=== PATIENT | female | born 1935 | race Caucasian/White ===

== ENCOUNTER 2016-07-08 19:20 | Emergency (ER) | payer MEDICARE, OTHER ==
[~2016-07-08 19:20] MED LIST: ALPRAZOLAM0.5 MG PO; AMLODIPINE BESYL5 MG PO; ARICEPT10 MG PO; ASPIR 8181 MG PO; CEVIMELINE HCL30 MG PO; CIPROFLOXACIN500 MG PO; ELAVIL 50 MG TA50 MG PO; FEOSOL ELI220 MG/5 M PO; FLOVENT DISKUS50 MCG; GABAPENTIN300 MG PO; ISORDIL TAB 3030 MG PO; LEVOTHYROXINE75 MCG PO; OMNICEF 300 MG300 MG PO; PROVENTIL HFA 61 INH INH; TENORMIN 50 MG50 MG PO; VITAMIN B-1000 MCG/M IM
[2016-07-08 20:21] LABS: HEMOGLOBIN 13.7 gm/dl (12.3-15.3); RED BLOOD COUNT 5.18 M/UL (4.00-5.10); WHITE BLOOD COUNT 7.1 K/UL (4.5-11.0)
[2016-07-08 20:39] LABS: BUN/CREATININE RATIO 15 (0-10)
== END 2016-07-09 17:10 | disposition home or self-care (01) ==
LOC: ER1 19:20
PROVIDERS: Family Medicine
DX: J44.9 Chronic obstructive pulmonary disease, unspecified (principal); F43.9 Reaction to severe stress, unspecified; Z88.5 Allergy status to narcotic agent; Z88.6 Allergy status to analgesic agent; Z88.8 Allergy status to other drugs, medicaments and biological substances
CPT/HCPCS: 36415; 70450; 71020; 80053; 80307; 81001; 82550; 82553; 83874; 84484; 85025; 93005; 94640; 94664; 96374; 96375; 99285; J2405; J2930